=== PATIENT | male | born 1960 | race Caucasian/White ===

== ENCOUNTER 2017-07-22 11:11 | Emergency (ER) | payer OTHER ==
[~2017-07-22] VITALS: Ht 177.8 cm; Wt 135.0 kg
[~2017-07-22 11:11] MED LIST: FENO130C6 PO; HYDR12.58 PO; LISI-167 PO; OXYC-302 PO; PHEN-583 PO; TAMS-11 PO
[2017-07-22 12:12] LABS: BASOPHILS # (AUTO) 0.09 x10^3/uL (0-0.1); BASOPHILS % (AUTO) 1 % (0-1); EOSINOPHILS # (AUTO) 0.58 x10^3/uL (0-0.4); EOSINOPHILS % (AUTO) 8 % (1-7); LYMPHOCYTES # (AUTO) 1.94 x10^3/uL (1-3.4); LYMPHOCYTES % (AUTO) 26 % (22-44); MD NO; MEAN CORPUSCULAR HEMOGLOBIN 29.3 pg (27.5-34.5); MEAN CORPUSCULAR VOLUME 86.3 fL (81-97); MEAN PLATELET VOLUME 7.2 fL (7.4-10.4); MONOCYTES # (AUTO) 0.71 x10^3/uL (0.2-0.8); MONOCYTES % (AUTO) 9 % (2-9); NEUTROPHILS # (AUTO) 4.26 x10^3/uL (1.8-6.8); NEUTROPHILS % (AUTO) 56 % (42-75); PLATELET COUNT 406 x10^3/uL (130-400); RED BLOOD COUNT 5.38 x10^6/uL (4.38-5.82); RED CELL DISTRIBUTION WIDTH 13.9 % (9.4-14.8)
[2017-07-22 12:18] LABS: ALBUMIN 3.8 g/dL (3.4-5.0); ANION GAP 7 mmol/L (5-15); CALCIUM 8.5 mg/dL (8.5-10.1); CHLORIDE 105 mmol/L (98-107); CREATININE 1.25 mg/dL (0.7-1.3)
[2017-07-22] MEDS ORDERED: RIVAROXABAN 15 MG TABLET PO ONE (13:00)
[2017-07-22 13:37] VITALS: BP 124/72
[2017-07-22] MEDS ORDERED: PRAV20TA2 PO (17:33)
== END 2017-07-22 13:41 | disposition home or self-care (01) ==
LOC: ED 13:30
DX: I82.A12 Acute embolism and thrombosis of left axillary vein (principal); I82.612 Acute embolism and thrombosis of superficial veins of left upper extremity; I10 Essential (primary) hypertension; E78.5 Hyperlipidemia, unspecified; Z45.2 Encounter for adjustment and management of vascular access device; Z86.718 Personal history of other venous thrombosis and embolism
CPT/HCPCS: 36415; 80048; 82040; 85025; 99285

== ENCOUNTER 2017-07-22 16:38 | Emergency (ER) | payer OTHER ==
[~2017-07-22] VITALS: Ht 177.8 cm; Wt 135.5 kg
[2017-07-22 16:39] VITALS: BP 154/89
[2017-07-22] MEDS ORDERED: PRAV20TA2 PO (17:33)
[2017-07-22 17:35] LABS: BASOPHILS # (AUTO) 0.05 x10^3/uL (0-0.1); BASOPHILS % (AUTO) 1 % (0-1); EOSINOPHILS # (AUTO) 0.55 x10^3/uL (0-0.4); EOSINOPHILS % (AUTO) 7 % (1-7); LYMPHOCYTES % (AUTO) 27 % (22-44); MD NO; MEAN CORPUSCULAR HGB CONC 33.8 g/dL (33.2-36.2); MEAN CORPUSCULAR VOLUME 85.7 fL (81-97); MEAN PLATELET VOLUME 7.3 fL (7.4-10.4); MONOCYTES # (AUTO) 0.69 x10^3/uL (0.2-0.8); MONOCYTES % (AUTO) 9 % (2-9); NEUTROPHILS % (AUTO) 57 % (42-75); PLATELET COUNT 427 x10^3/uL (130-400); RED BLOOD COUNT 5.46 x10^6/uL (4.38-5.82)
[2017-07-22 17:44] LABS: INTERNATIONAL NORMALIZED RATIO 1.25 (0.93-1.1); PROTHROMBIN TIME 12.9 Seconds (9.6-11.5)
[2017-07-22 17:48] LABS: ALBUMIN 3.8 g/dL (3.4-5.0); ANION GAP 7 mmol/L (5-15); CALCIUM 8.6 mg/dL (8.5-10.1); CHLORIDE 104 mmol/L (98-107); CREATININE 1.26 mg/dL (0.7-1.3)
[2017-07-22 18:00] LABS: CULTURE INDICATED? YES; MICROSCOPIC INDICATED
== END 2017-07-22 19:01 | disposition home or self-care (01) ==
LOC: ED 18:10
DX: R31.9 Hematuria, unspecified (principal); I10 Essential (primary) hypertension
CPT/HCPCS: 36415; 80048; 81001; 82040; 85025; 85610; 85730; 87086; 99284

== ENCOUNTER → 2017-07-25 | Outpatient (CLI) | payer OTHER ==
[~2017-07-25] MED LIST changes: +PRAV20TA2 PO
== END | disposition home or self-care (01) ==
LOC: RAD 10:40
PROVIDERS: ATTEND Urology
DX: N20.2 Calculus of kidney with calculus of ureter (principal)
CPT/HCPCS: 74018

== ENCOUNTER 2018-01-30 10:28 | Emergency (ER) | payer OTHER ==
[~2018-01-30] VITALS: Ht 177.8 cm; Wt 145.0 kg
[2018-01-30 10:37] VITALS: BP 157/78
[2018-01-30] MEDS ORDERED: OMEG1CAP23 PO (10:57)
[2018-01-30] MEDS ORDERED: ASPI-515 PO (10:57)
[2018-01-30] MEDS ORDERED: UBID10CA5 PO (10:58)
[2018-01-30] MEDS ORDERED: CHOL100011 PO (10:58)
[2018-01-30] MEDS ORDERED: CALC200T3 PO (10:58)
[2018-01-30] MEDS ORDERED: MAGN300C PO (10:59)
[2018-01-30] MEDS ORDERED: TURM500C7 PO (10:59)
== END 2018-01-30 12:16 | disposition home or self-care (01) ==
LOC: ED 11:35
DX: S93.602A Unspecified sprain of left foot, initial encounter (principal); I10 Essential (primary) hypertension; E78.5 Hyperlipidemia, unspecified; Z86.718 Personal history of other venous thrombosis and embolism; X58.XXXA Exposure to other specified factors, initial encounter; Y93.89 Activity, other specified; Y92.098 Other place in other non-institutional residence as the place of occurrence of the external cause; Y99.8 Other external cause status
CPT/HCPCS: 99284

== ENCOUNTER 2018-12-17 16:39 | Emergency (ER) | payer OTHER ==
[~2018-12-17] VITALS: Ht 177.8 cm; Wt 142.2 kg
[2018-12-17 18:28] VITALS: BP 123/72
== END 2018-12-17 19:13 | disposition home or self-care (01) ==
LOC: ED 19:07
DX: N30.01 Acute cystitis with hematuria (principal); E78.5 Hyperlipidemia, unspecified; I10 Essential (primary) hypertension; E66.9 Obesity, unspecified
CPT/HCPCS: 81001; 82962; 96372; 99283; J0696

== ENCOUNTER 2019-07-01 22:27 | Emergency (ER) | payer OTHER ==
[~2019-07-01] VITALS: Ht 175.3 cm; Wt 142.0 kg
[~2019-07-01 22:27] MED LIST changes: +ASPI-515 PO; +CALC200T3 PO; +CHOL100011 PO; +FENO130C11 PO; -FENO130C6 PO; -HYDR12.58 PO; +HYDROCHLOROTH12.5 MG PO; +MAGN300C PO; +OMEG1CAP23 PO; +TURM500C7 PO; +UBID10CA5 PO
[2019-07-01 22:31] VITALS: BP 149/82
--- NOTE | 2019-07-01 23:49 | NUR ---
pt to room from lobby
[2019-07-02] MEDS ORDERED: PHENAZOPYRIDINE 200 MG TABLET PO ONE (00:30)
[2019-07-02] MEDS ORDERED: PHENAZOPYRIDINE 200 MG TABLET ONE (00:40)
[2019-07-02] MEDS ORDERED: SULFAMETH./TRIMETHOPRIM DS 800MG/160MG TABLET ONE (00:40)
[2019-07-02 01:13] LABS: MICROSCOPIC AUTO
[2019-07-02 01:19] LABS: CULTURE INDICATED? YES
== END 2019-07-02 02:09 | disposition home or self-care (01) ==
LOC: ED 07-02 01:01
DX: N30.00 Acute cystitis without hematuria (principal); I10 Essential (primary) hypertension; E78.5 Hyperlipidemia, unspecified; E66.9 Obesity, unspecified
CPT/HCPCS: 81001; 87077; 87086; 99283